=== PATIENT | female | born 1955 | race Caucasian/White ===

== ENCOUNTER 2021-02-02 09:33 | Outpatient (CLI) | payer OTHER ==
[~2021-02-02 09:33] MED LIST: ANTIVERT25 M1; ATENOLOL25 MG; SEPTRA DS TABLE1 TAB PO; SYNTHROID200 MCG; SYNTHROID50 MCG; ULTRACET PO; ZOFRAN4 MG PO
== END 2021-02-02 09:36 | disposition home or self-care (01) ==
LOC: SONOGRAMA 09:33
PROVIDERS: ATTEND Pathology Anatomic Pathology & Clinical Pathology
DX: E04.1 Nontoxic single thyroid nodule (principal)

== ENCOUNTER 2022-12-03 10:33 | Emergency (ER) | payer OTHER ==
[~2022-12-03] VITALS: Ht 134.6 cm; Wt 68.0 kg
== END 2022-12-03 15:21 | disposition home or self-care (01) ==
LOC: ER 10:33
DX: T18.9XXA Foreign body of alimentary tract, part unspecified, initial encounter (principal)

== ENCOUNTER 2024-01-04 09:46 | Emergency (ER) | payer OTHER ==
[~2024-01-04] VITALS: Ht 142.2 cm; Wt 67.1 kg
[2024-01-04] MEDS ORDERED: TENORMIN50 M1 PO (09:55)
[2024-01-04] MEDS ORDERED: ATENOLOL50 MG PO (09:55)
[2024-01-04] MEDS ORDERED: SYNTHROID75 MCG PO (09:56)
[2024-01-04 11:28] LABS: HEMOGLOBIN 14.4 g/dL (12.0-15.00); MEAN CELL VOLUME 87.7 fL (80.00-100.00); MEAN CORPUSCULAR HEMOGLOBIN 30.1 pg (27.00-32.0); MEAN CORPUSCULAR HGB CONC 34.3 g/dl (32.0-36.0); PLATELET COUNT 318 K/uL (150-450); RED BLOOD COUNT 4.79 M/uL (4.00-6.00); RED CELL DISTRIBUTION WIDTH 12.5 % (11.5-14.5)
[2024-01-04 13:46] LABS: ABG PH 7.405 (7.35-7.45); ABG pCO2 43.4 mmHg (35-45)
[2024-01-04 13:47] LABS: BASE EXCESS 1.5 mmol/l; BICARBONATE 26.6 mmol/l (23-25); SaO2 96.8 %; Tco2 27.9 mmol/l; allen test SATISFACTORY; o2 21 %; puncture site RADIAL RIGHT
== END 2024-01-04 13:41 | disposition home or self-care (01) ==
LOC: ER 09:47
PROVIDERS: General Practice
DX: J06.9 Acute upper respiratory infection, unspecified (principal); I10 Essential (primary) hypertension; E03.9 Hypothyroidism, unspecified; K57.92 Diverticulitis of intestine, part unspecified, without perforation or abscess without bleeding

== ENCOUNTER → 2025-06-24 | Emergency (ER) | payer OTHER ==
[~2025-06-24] MED LIST changes: +ATENOLOL50 MG PO; +SYNTHROID75 MCG PO; +TENORMIN50 M1 PO
== END | disposition left against medical advice (07) ==
LOC: ER 11:14
DX: Z53.21 Procedure and treatment not carried out due to patient leaving prior to being seen by health care provider (principal)